=== PATIENT | male | born 1985 | race Caucasian/White ===

== ENCOUNTER 2016-07-30 08:52 | Emergency (ER) | payer OTHER ==
[~2016-07-30] VITALS: Ht 167.6 cm; Wt 70.9 kg
[~2016-07-30 08:52] MED LIST: AZIT250T PO
[2016-07-30 08:58] VITALS: TEMP 36.9; Ht 167.6 cm; Wt 70.9 kg
[2016-07-30] MEDS ORDERED: PROPARACAINE HCL 0.5% OP SOLN 15 ML BTL OP STA (09:11)
[2016-07-30] MEDS ORDERED: KETOROLAC 0.5% OP SOLN 3 ML BTL OP STA (10:09)
[2016-07-30 10:35] VITALS: BP 142/72; PULSE 64; O2SAT 98
--- NOTE | 2016-07-30 11:15 | EMERGENCY ROOM VISIT NOTE ---
History First contact with patient: 09:00 Chief Complaint: EYE ASSESSMENT Stated Complaint: EYES ISSUES History of Present Illness The patient is a 30 year old male who presents to the Emergency Room with complaints of bilateral eye redness and discomfort. The patient reports that his symptoms started yesterday morning. He does notice some mild photophobia. He denies any excessive tearing or crusting of the eyes. He was seen at the [facility] [place] and referred to the emergency department for further evaluation. The patient does not wear contacts. He had an appointment with his state epidemiologist 2 weeks ago. He denies any runny nose, congestion or cough. He does not believe that he got any foreign debris in the eyes. 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 Review of Systems 10 system review was performed and was negative except for pertinent positives and negatives as indicated in history of present illness Past Medical/Surgical History Medical Problems: (1) No significant past medical history Surgical Problems: (1) History of tonsillectomy Social History Smoking Status: Never Smoker Alcohol Use: occasionally Marital Status: single Housing Status: lives alone Occupation Status: employed Current/Historical Medications No Active Prescriptions or Reported Meds Allergies Coded Allergies: No Known Allergies (Unverified , 07/30/16) Physical Exam Vital Signs Date Time Temp Pulse Resp B/P Pulse Ox O2 Delivery O2 Flow Rate FiO2 07/30/16 10:35 64 18 142/72 98 07/30/16 08:58 36.9 71 18 132/80 97 Room Air Pain Rating (0-10): 0 Physical Exam CONSTITUTIONAL: Healthy and well nourished. Alert and oriented X 3 with positive affect. Patient does not appear in any acute distress. HEENT: Normocephalic, atraumatic. Pupils equal, round and reactive. She has minimal pre-palpebral conjunctival injection. No excessive tearing or purulent drainage. EOMs intact without discomfort. Ears and nares are otherwise clear. OROPHARYNX: No postnasal drip, posterior pharyngeal erythema or tonsillar hypertrophy/exudates. NECK: Full active range of motion without discomfort. RESPIRATORY: Clear to auscultation bilaterally with no wheezing, crackles, rhonchi or stridor. CARDIOVASCULAR: Regular rate and rhythm with no murmurs, rubs or gallops. MUSCULOSKELETAL: Full range of motion of all joints without discomfort. INTEGUMENTARY: No rash or other significant dermatologic conditions noted. NEUROLOGIC: No focal neurologic deficits noted. Medical Decision & Procedures Medications Administered Medications (Trade) Dose Ordered Sig/Martha Route Start Time Stop Time Status Last Admin Dose Admin Ketorolac Tromethamine (Acular 0.5 Oph Soln) 1 drops ONE STAT OP 07/30/16 10:09 07/30/16 10:11 DC 07/30/16 10:09 1 DROPS Procedure Slit lamp and fluorescein exam were performed. 2 drops of Alcaine were instilled into each eye with good relief of symptoms. Further examination shows no mucopurulent drainage. Negative hyphema or cell and flare. No foreign debris is noted within the lower conjunctival sac or under the upper eyelid with eversion. Fluorescein exam did not show any corneal uptake, abrasions or other lesions. ED Course Patient history and physical exam were performed. Nurse's notes were reviewed. Based on history and physical exam/lab findings, I suspect allergic conjunctivitis. The patient was dispensed Acular eyedrops and instructions for their use. The patient was instructed to intermittently apply cool compresses. Ibuprofen or Tylenol as needed for pain. The patient was encouraged to follow -up with his state epidemiologist if symptoms are not improving within the next 48 hours. The patient was happy with plan of care, and voiced understanding of all discharge instructions, denying any pain at the conclusion of my exam. Impression Primary Impression: Allergic conjunctivitis Departure Information Dispostion Home / Self-Care Condition GOOD Prescriptions No Active Prescriptions or Reported Meds Forms HOME CARE DOCUMENTATION FORM, IMPORTANT VISIT INFORMATION Patient Instructions My [employer] Additional Instructions Intermittently apply cool compresses to the eyes. Acular 1 drop 4 times daily. Follow-up with your state epidemiologist if symptoms are not improving within the next 48 hours. Return to the emergency department for any progressively worsening pain, blurred vision or drainage from the eyes. Problem Qualifiers Primary Impression: Allergic conjunctivitis Laterality: bilateral Qualified Codes: H10.13 - Acute atopic conjunctivitis , bilateral
== END 2016-07-30 10:36 | disposition home or self-care (01) ==
LOC: C.EDB 08:54 → C.EDA 10:36
DX: H10.13 Acute atopic conjunctivitis, bilateral (principal)